=== PATIENT | female | born 1990 | race African-American/Black ===

== ENCOUNTER 2016-06-20 09:54 | Emergency (ER) | payer SELFPAY ==
[~2016-06-20] VITALS: Ht 152.4 cm; Wt 62.8 kg
[2016-06-20] MEDS ORDERED: CIPRO HC OTIC S10 ML RIGHT EAR (11:36)
[2016-06-20 12:01] VITALS: BP 154/106
== END 2016-06-20 12:02 | disposition home or self-care (01) ==
LOC: EME 09:54
PROC: 3E1B78Z Irrigation of Ear using Irrigating Substance, Via Natural or Artificial Opening (ICD-10-PCS; principal; 2016-06-20)
DX: H66.91 Otitis media, unspecified, right ear (principal); H61.21 Impacted cerumen, right ear
CPT/HCPCS: 99281; 99283

== ENCOUNTER 2017-06-17 22:38 | Emergency (ER) | payer SELFPAY ==
[~2017-06-17] VITALS: Ht 160 cm; Wt 63.9 kg
[~2017-06-17 22:38] MED LIST: CIPRO HC OTIC S10 ML RIGHT EAR
[2017-06-18 00:21] LABS: ALBUMIN 4.5 g/dL (3.2-4.8); CHLORIDE 105 mEq/L (99-109); POTASSIUM 4.4 mEq/L (3.7-5.4); SODIUM 136 mEq/L (136-147)
[2017-06-18 00:24] LABS: GLUCOSE 103 mg/dL (70-99); TOTAL PROTEIN 8.2 g/dL (6.4-8.3)
[2017-06-18 00:26] LABS: TOTAL BILIRUBIN 0.3 mg/dL (0.0-1.0)
[2017-06-18 00:27] LABS: ALKALINE PHOSPHATASE 75 IU/L (3-129); CREATININE 0.9 mg/dL (0.6-1.3); GFR ESTIMATE (CALCULATED) > 59 mL/min/
[2017-06-18 00:28] LABS: UREA NITROGEN (BUN) 7 mg/dL (9-23)
[2017-06-18 00:29] LABS: AST (GOT) 17 IU/L (2-34); HEMATOCRIT 33.2 % (36.0-46.0); HEMOGLOBIN 11.6 G/DL (11.9-15.5); MCHC 34.9 G/DL (30.0-36.0); MCV 74.3 FL (83-99); PLATELET COUNT 378 K/uL (156-360); RBC DIS.WIDTH-CV 15.8 % (11.8-14.6); RBC DIS.WIDTH-SD 42.2 % (39-53); RED BLOOD COUNT 4.47 M/uL (3.80-5.20); WHITE BLOOD COUNT 4.7 K/uL (4.1-10.2)
[2017-06-18 00:30] LABS: ALT (GPT) 11 IU/L (3-49)
[2017-06-18 00:31] LABS: LIPASE 33 U/L (1.0-51.0)
[2017-06-18 00:40] LABS: QUANTITATIVE HCG < 4.0 MIU/ML; TROP-I INTERPRETATION NEGATIVE; TROPONIN-I < 0.01 ng/mL (0.0-0.30)
[2017-06-18 01:03] VITALS: BP 146/89
== END 2017-06-18 01:01 | disposition home or self-care (01) ==
LOC: EME 22:38
PROVIDERS: Emergency Medicine
DX: R00.2 Palpitations (principal)
CPT/HCPCS: 71046; 80053; 83690; 84484; 84702; 85027; 93005; 99281; 99283